=== PATIENT | female | born 2000 | race African-American/Black ===

== ENCOUNTER 2025-05-07 09:35 | Emergency (ER) | payer SELFPAY ==
[~2025-05-07] VITALS: Ht 170.2 cm; Wt 115.0 kg
[2025-05-07 09:55] VITALS: O2SAT 99
[2025-05-07] MEDS: ACETAMINOPHEN 500MG TABLET PO ONE (10:52)
[2025-05-07] MEDS: DEXAMETHASONE 4MG TABLET PO ONE (10:52)
[2025-05-07] MEDS ORDERED: AMOX-494 MT (11:16)
[2025-05-07] MEDS ORDERED: TOPUD MT (11:16)
[2025-05-07 11:22] VITALS: BP 140/80; PULSE 97; RESP 18; TEMP 37.2; O2SAT 99
== END 2025-05-07 11:28 | disposition home or self-care (01) ==
LOC: ER 09:35
DX: J02.0 Streptococcal pharyngitis (principal)
CPT/HCPCS: 99283; 81025; 87430; J8540